=== PATIENT | female | born 1970 | race African-American/Black ===

== ENCOUNTER 2016-05-08 22:40 | Emergency (ER) | payer OTHER ==
[2016-05-08 22:49] VITALS: BP 127/83
--- NOTE | 2016-05-08 23:04 | ED THROAT/DENTAL COMPLAINT ---
History of Present Illness General Chief Complaint: Skin Rash/ Abcess Stated Complaint: ABCESS IN MOUTH Source: patient Exam Limitations: no limitations Vital Signs & Intake/Output Vital Signs & Intake/Output Vital Signs Date Time Temp Pulse Resp B/P Pulse O2 O2 Flow FiO2 Ox Delivery Rate 05/08 2314 98 Room Air 05/08 2249 98.5 109 22 127/83 98 Room Air Allergies Coded Allergies: NO KNOWN ALLERGIES (12/05/10) Reconcile Medications Amoxicillin/Potassium Clav (Augmentin 875-125 Tablet) 875 MG-125 MG TABLET 1 TAB PO BID DENTAL ABSCESS Ibuprofen 800 MG TABLET 1 TAB PO TID PRN PAIN Oxycodone HCl/Acetaminophen (Percocet 5-325 MG Tablet) 5 MG-325 MG TABLET 1 TAB PO 4XDP PRN PAIN TEN...[id number] Triage Note: PER PT ABSCESS TO MOUTH X 3 DAYS L CHEEK SWOLLEN X 3 DAYS PT REPORTS EATING SO MUCH MOTRIN I'LL OD ON IT AND NO EFFECT LAST DOSE 1600. Triage Nurses Notes Reviewed? yes Onset: Gradual Duration: day(s):, waxing and waning Timing: recent history Injury Environment: home Severity: mild, moderate Modifying Factors: Improves With: rest. Worsens With: movement. Associated Symptoms: swelling in mouth HPI: 46 yo woman with 2-3 days of worsening swelling in gum and increased dental pain. "I think I have an infection and need to see the dentist to get my tooth fixed. " She notes that ibuprofen does not work for pain, but that she is able to swallow and eat without problem. Past History Travel History Traveled to [place] past 21 day No Medical History Any Pertinent Medical History? see below for history Neurological: NONE EENT: NONE Cardiovascular: hypertension Renal: NONE Psychiatric: NONE Surgical History Surgical History: none Psychosocial History What is your primary language [place]ani Tobacco Use: Current Daily Use Daily Tobacco Use Amount/Type: => 5 Cigarettes daily Family History Hx Contributory? No Review of Systems Review of Systems Constitutional: Reports: no symptoms. EENTM: Reports: no symptoms. Respiratory: Reports: no symptoms. Cardiovascular: Reports: no symptoms. GI: Reports: no symptoms. Genitourinary: Reports: no symptoms. Musculoskeletal: Reports: no symptoms. Skin: Reports: no symptoms. Neurological/Psychological: Reports: no symptoms. Hematologic/Endocrine: Reports: no symptoms. Immunologic/Allergic: Reports: no symptoms. All Other Systems: Reviewed and Negative Physical Exam Physical Exam General Appearance: well developed/nourished, mild distress Head: atraumatic, normal appearance Eyes: Bilateral: normal appearance. Ears: Bilateral: canal normal. Nose: normal inspection, active bleeding Mouth/Throat: dental tenderness, mild swelling and tenderness in left lower dental line. no dora abscess amenable to drainage. Neck: normal inspection Cardiovascular/Respiratory: normal breath sounds Core Measures ACS in differential dx? No Severe Sepsis Present: No Septic Shock Present: No Progress Differential Diagnosis: carious tooth, odontogenic abscess Plan of Care: gave rx for abx and pain medications... advocated close follow up with pmd. Departure Departure Disposition: HOME OR SELF CARE Condition: Stable Clinical Impression Primary Impression: Dental abscess Referrals: PATIENT HAS NO PRIMARY CARE DR (PCP/Family) Referred to [facility] as new patient No Departure Forms: Customer Survey General Discharge Information Prescriptions: Current Visit Scripts Oxycodone HCl/Acetaminophen (Percocet 5-325 MG Tablet) 1 TAB PO 4XDP PRN PAIN #10 TAB TEN...[id number] Ibuprofen 1 TAB PO TID PRN PAIN #60 TAB Ref 1 Amoxicillin/Potassium Clav (Augmentin 875-125 Tablet) 1 TAB PO BID #20 TAB
[2016-05-08] MEDS ORDERED: IBUPROFEN800 M1 PO (23:10)
[2016-05-08] MEDS ORDERED: AUGMENTIN 875-1 EACH PO (23:10)
[2016-05-08] MEDS ORDERED: PERCOCET 5-3251 EACH PO (23:10)
== END 2016-05-08 23:18 ==
LOC: ERH 22:40
DX: K04.7 Periapical abscess without sinus (principal)
CPT/HCPCS: J3490